=== PATIENT | female | born 1975 | race Hispanic/Latino ===

== ENCOUNTER 2017-05-21 22:37 | Emergency (ER) | payer MEDICAID ==
--- NOTE | 2017-05-22 02:19 | Emergency Department Report ---
ED General Adult HPI - General Chief complaint: Skin/Abscess/Foreign Body Stated complaint: MRSA OUTBREAK Time Seen by Provider: 05/22/17 01:58 Source: patient, family Mode of arrival: Ambulatory Limitations: No Limitations - History of Present Illness Initial comments: Patient comes into the ER today with complaints of 2 skin lesions. Patient states that she frequently gets MRSA infections and she doesn't know why. Patient states that she recently had one lesion drained on her lower abdomen 2 weeks ago and has been on clindamycin as well as Keflex that she finished yesterday. Her 2 lesions of concern today are located on her left breast and left side of her lower abdomen. Patient states that these lesions started showing up 2-3 days ago while she was still on the antibiotics. Patient also requested a refill of her lisinopril 20 mg daily. Fever, body aches, vomiting. Severity scale (0 -10): 5 - Related Data Home Medications Medication Instructions Recorded Confirmed Last Taken Lisinopril [Zestril] 20 mg PO QDAY 05/22/17 05/22/17 1 Day Ago Previous Rx's Medication Instructions Recorded Last Taken Type Acetaminophen/Codeine [Tylenol 1 tab PO Q4HR PRN #20 tablet 05/22/17 Unknown Rx /Codeine # 3 tab] Doxycycline [Vibramycin CAP] 100 mg PO Q12HR #20 capsule 05/22/17 Unknown Rx Fluconazole [Diflucan TAB] 150 mg PO Q72HR PRN #4 tablet 05/22/17 Unknown Rx Lisinopril [Zestril TAB] 20 mg PO QDAY #30 tablet 05/22/17 Unknown Rx Mupirocin [Bactroban 2%] 1 applic TP BID #1 tube 05/22/17 Unknown Rx Allergies Allergy/AdvReac Type Severity Reaction Status Date / Time ibuprofen Allergy Hives Verified 05/21/17 22:48 Penicillins Allergy Hives Verified 05/21/17 22:48 Sulfa (Sulfonamide Allergy Hives Verified 05/21/17 22:48 Antibiotics) tramadol Allergy Hives Verified 05/21/17 22:48 ED Review of Systems ROS: Stated complaint: MRSA OUTBREAK Other details as noted in HPI Constitutional: denies: chills, fever Eyes: denies: eye pain, eye discharge, vision change ENT: denies: ear pain, throat pain Respiratory: denies: cough, shortness of breath, wheezing Cardiovascular: denies: chest pain, palpitations Endocrine: no symptoms reported Gastrointestinal: denies: abdominal pain, nausea, diarrhea Genitourinary: denies: urgency, dysuria, discharge Musculoskeletal: denies: back pain, joint swelling, arthralgia Skin: lesions. denies: rash Neurological: denies: headache, weakness, paresthesias Psychiatric: denies: anxiety, depression Hematological/Lymphatic: denies: easy bleeding, easy bruising ED Past Medical Hx - Past Medical History Previous Medical History?: Yes Hx Hypertension: Yes Additional medical history: MRSA - Blood Strain 4. MRSA Sores - Surgical History Past Surgical History?: Yes Additional Surgical History: Tonsils - Social History Smoking Status: Current Every Day Smoker Substance Use Type: None - Medications Home Medications: Home Medications Medication Instructions Recorded Confirmed Last Taken Type Acetaminophen/Codeine [Tylenol 1 tab PO Q4HR PRN #20 tablet 05/22/17 Unknown Rx /Codeine # 3 tab] Doxycycline [Vibramycin CAP] 100 mg PO Q12HR #20 capsule 05/22/17 Unknown Rx Fluconazole [Diflucan TAB] 150 mg PO Q72HR PRN #4 tablet 05/22/17 Unknown Rx Lisinopril [Zestril TAB] 20 mg PO QDAY #30 tablet 05/22/17 Unknown Rx Lisinopril [Zestril] 20 mg PO QDAY 05/22/17 05/22/17 1 Day Ago History Mupirocin [Bactroban 2%] 1 applic TP BID #1 tube 05/22/17 Unknown Rx ED Physical Exam - General Limitations: No Limitations General appearance: alert, in no apparent distress - Head Head exam: Present: atraumatic, normocephalic - Eye Eye exam: Present: normal appearance - ENT ENT exam: Present: mucous membranes moist - Neck Neck exam: Present: normal inspection - Respiratory Respiratory exam: Present: normal lung sounds bilaterally. Absent: respiratory distress - Cardiovascular Cardiovascular Exam: Present: regular rate, normal rhythm. Absent: systolic murmur, diastolic murmur, rubs, gallop - GI/Abdominal GI/Abdominal exam: Present: soft, normal bowel sounds - Extremities Exam Extremities exam: Present: normal inspection - Back Exam Back exam: Present: normal inspection - Neurological Exam Neurological exam: Present: alert, oriented X3 - Psychiatric Psychiatric exam: Present: normal affect, normal mood - Skin Skin exam: Present: warm, dry, intact, normal color, erythema (left lateral breast with 0.5 cm pustule and surrounding tissue erythematous. Left lower abdomen with smaller pustule and without surrounding redness or induration.). Absent: rash ED Course Vital Signs 05/21/17 22:38 Temperature 98.3 F Pulse Rate 86 Respiratory 20 Rate Blood Pressure 167/109 [Right] O2 Sat by Pulse 100 Oximetry ED Medical Decision Making - Medical Decision Making Patient is nontoxic and hemodynamically stable. I do not believe patient needs to have incision and drainage performed at this time. I have instructed patient to apply warm compresses to areas. I have concerned as to the source of this infection been resistant to clindamycin and Keflex that she was on these medications when these infections arose. I will start patient on doxycycline as she is allergic to sulfa. Patient is in agreement with treatment plan the patient is stable for discharge. Critical care attestation.: If time is entered above; I have spent that time in minutes in the direct care of this critically ill patient, excluding procedure time. ED Disposition Clinical Impression: Skin infection, bacterial, Hypertension, History of MRSA infection Disposition: DC-01 TO HOME OR SELFCARE Is pt being admited?: No Does the pt Need Aspirin: No Condition: Good Instructions: Hypertension (ED), Methicillin Resistant Staphylococcus Aureus ( ED) Prescriptions: Acetaminophen/Codeine [Tylenol /Codeine # 3 tab] 1 tab PO Q4HR PRN #20 tablet PRN Reason: Pain Doxycycline [Vibramycin CAP] 100 mg PO Q12HR #20 capsule Lisinopril [Zestril TAB] 20 mg PO QDAY #30 tablet Mupirocin [Bactroban 2%] 1 applic TP BID #1 tube Fluconazole [Diflucan TAB] 150 mg PO Q72HR PRN #4 tablet PRN Reason: Vaginal Irritation Referrals: PRIMARY CARE,MD [Primary Care Provider] - 3-5 Days Time of Disposition: 02:23
[2017-05-22 02:33] VITALS: BP 145/84
== END 2017-05-22 02:33 | disposition home or self-care (01) ==
LOC: ED 22:37
DX: L08.89 Other specified local infections of the skin and subcutaneous tissue (principal); I10 Essential (primary) hypertension; F17.210 Nicotine dependence, cigarettes, uncomplicated; Z86.14 Personal history of Methicillin resistant Staphylococcus aureus infection; Z88.6 Allergy status to analgesic agent; Z88.0 Allergy status to penicillin; Z88.1 Allergy status to other antibiotic agents; Z88.2 Allergy status to sulfonamides
CPT/HCPCS: 99282